=== PATIENT | female | born 1950 | race Caucasian/White ===

== ENCOUNTER 2018-11-29 20:17 | Observation (INO) | payer MEDICARE ==
[~2018-11-29] VITALS: Ht 165.1 cm; Wt 61.2 kg
[2018-11-29] MEDS ORDERED: NITROGLYCERIN 0.4 MG SL TAB SL ONE (20:29)
[2018-11-29] MEDS ORDERED: ONDANSETRON HCL 4 MG/2 ML VIAL ONE (20:30)
[2018-11-29 20:59] LABS: BASOPHILS % (AUTO) 0.9 % (0.0-5.0); EOSINOPHILS % (AUTO) 6.9 % (0.0-8.0); HEMATOCRIT 37.2 % (36-48); LYMPHOCYTES % (AUTO) 38.1 % (21.0-51.0); MEAN CORPUSCULAR HEMOGLOBIN 31.4 pg (27.0-33.0); MEAN CORPUSCULAR HGB CONC 33.4 g/dL (32.0-36.0); MEAN CORPUSCULAR VOLUME 93.8 fL (79-99); MONOCYTES % (AUTO) 8.6 % (3.0-13.0); NEUTROPHILS % (AUTO) 45.5 % (40.0-77.0); PLATELET COUNT (AUTO) 200 K/uL (130-400); RED BLOOD CELL COUNT(AUTO) 3.96 MIL/uL (4.00-5.50); RED CELL DISTRIBUTION WIDTH 14.8 % (11.0-15.5); WHITE BLOOD COUNT (AUTO) 5.9 K/uL (4.8-10.8)
[2018-11-29] MEDS ORDERED: ASPIRIN 325 MG TABLET ONE (21:11)
[2018-11-29 21:16] LABS: PARTIAL THROMBOPLASTIN TIME 31.4 SEC (26.3-35.5); PROTHROMBIN TIME 10.5 SEC (9.6-11.6)
[2018-11-29 21:20] LABS: CREATININE 1.3 mg/dL (0.5-1.5); POTASSIUM 4.2 mmol/L (3.5-5.1)
[2018-11-29 21:24] LABS: ALBUMIN 3.7 g/dL (3.5-5.0); BILIRUBIN,TOTAL 0.3 mg/dL (0.2-1.0)
[2018-11-29 21:41] LABS: ALCOHOL, BLOOD 199 mg/dL (0-10); LIPASE 318 U/L (114-286)
[2018-11-29] MEDS ORDERED: ONDANSETRON HCL 4 MG/2 ML VIAL IV PRN (23:00)
[2018-11-29] MEDS ORDERED: MORPHINE SULFATE 2 MG/ML 1ML SYG IV PRN (23:00)
[2018-11-29] MEDS ORDERED: ACETAMINOPHEN 325 MG TAB PO PRN (23:00)
[2018-11-29] MEDS ORDERED: NITROGLYCERIN 1GM/1 INCH PACKET TD SCH (23:00)
[2018-11-30] MEDS ORDERED: NITROGLYCERIN 1GM/1 INCH PACKET TD ONE ×2 (00:35→07:39)
[2018-11-30] MEDS ORDERED: MORPHINE SULFATE 2 MG/ML 1ML SYG ONE (00:35)
[2018-11-30 05:43] LABS: CHOLESTEROL 139 mg/dL (<200); HDL CHOLESTEROL 45 mg/dL (35-85); LDL DIRECT 71 mg/dL (0-99); TRIGLYCERIDES 209 mg/dL (30-200)
[2018-11-30] MEDS ORDERED: ENOXAPARIN SODIUM 30 MG/0.3 ML SQ ONE (07:38)
[2018-11-30] MEDS ORDERED: ASPIRIN 325 MG TABLET ONE (07:38)
[2018-11-30] MEDS ORDERED: FAMOTIDINE/PF 20 MG/2 ML VIAL IV ONE (07:39)
[2018-11-30] MEDS ORDERED: METOPROLOL TARTRATE 25 MG TAB ONE (07:39)
[2018-11-30] MEDS ORDERED: ASPIRIN 325 MG TABLET PO SCH (09:00)
[2018-11-30] MEDS ORDERED: METOPROLOL TARTRATE 25 MG TAB PO SCH (09:00)
[2018-11-30] MEDS ORDERED: ENOXAPARIN SODIUM 30 MG/0.3 ML SQ SCH (09:00)
[2018-11-30] MEDS ORDERED: FAMOTIDINE/PF 20 MG/2 ML VIAL IV SCH (09:00)
[2018-11-30] MEDS ORDERED: PANT40TA PO (11:52)
--- NOTE | 2018-11-30 13:00 | NUR ---
PT PT DIDN'T BRING HOME MEDICATIONS TO HOSPITAL. ADMISSION DATABASE , MEDICAL HX DONE. PT NOTED WITH NO PIV . STATES WAS ALREADY REMOVED BY ER NURSE. PT AWAKE AND ALERT IN STRETCHER, DENIES ANY CHEST PAIN
--- NOTE | 2018-11-30 13:16 | NUR ---
DC DC INSTRUCTIONS GIVEN TO PT WITH RX, INTRUCTED TO F/U WITH PCP, NO PIV NOTED. PT WAITING FOR FAMILY TO GO HOME, PT DENIES ANY CHEST PAIN
[2018-11-30] MEDS ORDERED: ATORVASTATIN CALCIUM 10 MG TABLET PO SCH (21:00)
== END 2018-11-30 13:31 | disposition home or self-care (01) ==
LOC: EDH 20:17 → EDHIP 22:32
PROVIDERS: ADMIT Internal Medicine; ATTEND Internal Medicine
DX: I25.110 Atherosclerotic heart disease of native coronary artery with unstable angina pectoris (principal); E78.5 Hyperlipidemia, unspecified; I10 Essential (primary) hypertension; I24.9 Acute ischemic heart disease, unspecified; Z95.1 Presence of aortocoronary bypass graft; Z79.899 Other long term (current) drug therapy; Z79.01 Long term (current) use of anticoagulants
CPT/HCPCS: 36415 ×2; 71045; 71275; 76705; 80053; 80061; 82550; 83690; 84484 ×3; 85025; 85378; 85610; 85730; 93005; 96372; 96374; 99284; G0378 ×15; G0480; J1650; J2405; J3490